=== PATIENT | female | born 2000 | race American Indian/Alaskan Native ===

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

== ENCOUNTER 2019-01-24 19:18 | Emergency (ER) | payer SELFPAY ==
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
[2019-01-24 20:29] LABS: ANION GAP 17.8; CHLORIDE,CL 111 mmol/L (101-111); SODIUM,NA 144 mmol/L (135-145)
[2019-01-24 20:30] LABS: ACETAMINOPHEN < 10 ug/mL
== END 2019-01-24 21:38 ==
LOC: DL.ED 19:18
DX: F32.9 Major depressive disorder, single episode, unspecified (principal); S50.812A Abrasion of left forearm, initial encounter; F10.129 Alcohol abuse with intoxication, unspecified; Y90.8 Blood alcohol level of 240 mg/100 ml or more; X78.9XXA Intentional self-harm by unspecified sharp object, initial encounter
CPT/HCPCS: 36415; 80053; 80305; 81001; 81025; 85025; 99283; G0480

== ENCOUNTER 2019-02-28 13:36 | Emergency (ER) | payer SELFPAY ==
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
== END 2019-02-28 19:20 | disposition home or self-care (01) ==
LOC: DL.ED 13:36
DX: S01.511A Laceration without foreign body of lip, initial encounter (principal); W22.8XXA Striking against or struck by other objects, initial encounter
CPT/HCPCS: 99283

== ENCOUNTER 2019-09-02 00:38 | Emergency (ER) | payer SELFPAY ==
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
== END 2019-09-02 02:56 | disposition home or self-care (01) ==
LOC: DL.ED 00:38
DX: S22.31XA Fracture of one rib, right side, initial encounter for closed fracture (principal); Y04.2XXA Assault by strike against or bumped into by another person, initial encounter
CPT/HCPCS: 71111; 80305-QW; 81001; 81025; 99284-25

== ENCOUNTER 2020-02-15 23:54 | Emergency (ER) | payer SELFPAY ==
[2020-02-16] MEDS ORDERED: Lidocaine 1% with EPINEPHrine 1:100,000 20 ML MDV INJECT ONE (00:01)
[2020-02-16 00:32] LABS: ANION GAP 15.6 mEq/L (7-13); CHLORIDE,CL 105 mmol/L (98-107); SODIUM,NA 143 mmol/L (136-145)
[2020-02-16] MEDS ORDERED: MVI, Adult with Vitamin K 10 ML, Folic Acid 1 MG, Thiamine 100 MG in Lactated Ringers 1... IV ONE ×4 (01:07)
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
== END 2020-02-16 02:22 | disposition home or self-care (01) ==
LOC: DL.ED 23:54
DX: S01.511A Laceration without foreign body of lip, initial encounter (principal); F10.129 Alcohol abuse with intoxication, unspecified; F17.210 Nicotine dependence, cigarettes, uncomplicated; Y90.8 Blood alcohol level of 240 mg/100 ml or more; Y04.0XXA Assault by unarmed brawl or fight, initial encounter
CPT/HCPCS: 12011; 36415; 73620; 80053; 80307; 85025; 96365; 99282; 99284; J3411; J7120; J3490

== ENCOUNTER 2020-05-21 03:54 | Emergency (ER) | payer SELFPAY ==
[2020-05-21 04:30] LABS: SODIUM,NA 146 mmol/L (136-145)
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
[2020-05-21 04:45] LABS: ANION GAP 17.3 mEq/L (7-13); CHLORIDE,CL 108 mmol/L (98-107)
== END 2020-05-21 04:41 ==
LOC: DL.ED 03:54
DX: F10.120 Alcohol abuse with intoxication, uncomplicated (principal); F17.210 Nicotine dependence, cigarettes, uncomplicated
CPT/HCPCS: 36415; 80053; 80305-QW; 80307; 81001; 81025; 85025; 99282; 99284

== ENCOUNTER 2023-06-07 04:27 | Emergency (ER) | payer MEDICAID ==
[~2023-06-07 04:27] MED LIST: Lactated Ringers 1,000 ML IV ONE; Sodium Chloride 0.9% 10 ML Syringe FLUSH PRN
[2023-06-07 04:28] LABS: HEMATOCRIT 44.9 % (37.0-47.0); MEAN CORPUSCULAR HEMOGLOBIN 30.4 pg (27.0-34.0); MEAN CORPUSCULAR HGB CONC 33.4 g/dL (33.0-35.0); MEAN CORPUSCULAR VOLUME 91.1 fL (80-100); PLATELET COUNT,PLT 342 10^3/uL (150-450); RED BLOOD CELL COUNT 4.93 10^6/uL (4.2-5.4)
[2023-06-07 04:33] LABS: BASOPHILS PERCENT AUTO 0.2 % (0.0-1.0); EOSINOPHILS PERCENT AUTO 0.6 % (1.0-3.0); LYMPHOCYTES PERCENT AUTO 29.5 % (20.5-50.1); MONOCYTES PERCENT AUTO 6.2 % (2-8); NEUTROPHILS PERCENT AUTO 63.5 % (42.2-75.2)
[2023-06-07 04:59] LABS: BAND PERCENT MAN 7 %; LYMPHOCYTES PERCENT MAN 33 % (20-50); SEG NEUTROPHILS PERCENT MAN 60 % (42-75)
[2023-06-07 05:01] LABS: A/G RATIO 0.9; ALBUMIN 3.8 g/dL (3.4-5.0); ANION GAP 14.6 mEq/L (7-13); BILIRUBIN TOTAL 0.2 mg/dL (0.2-1.0); BUN/CREATININE RATIO 2.5 (No establ ref range); CALCIUM 8.6 mg/dL (8.5-10.1); CREATININE 0.8 mg/dL (0.55-1.02); EST CRCL DRUG DOSING (CG) 97.57 mL/min; POTASSIUM,K 3.6 mmol/L (3.5-5.1); PROTEIN TOTAL,TP 8.2 g/dL (6.4-8.2)
[2023-06-07] MEDS ORDERED: MVI, Adult with Vitamin K 10 ML, Folic Acid 1 MG, Thiamine 100 MG in Lactated Ringers 1... IV ONE ×4 (05:45)
[2023-06-07 07:13] LABS: APPEARANCE,URINE CLEAR (CLEAR); BILIRUBIN,URINE NEGATIVE (NEGATIVE); COLOR,URINE YELLOW (YELLOW); GLUCOSE,URINE NEGATIVE (NEGATIVE); KETONES,URINE NEGATIVE (NEGATIVE); LEUKOCYTE ESTERASE,URINE NEGATIVE (NEGATIVE); NITRITE,URINE NEGATIVE (NEGATIVE); OCCULT BLOOD,URINE NEGATIVE (NEGATIVE); PH,URINE 6.5 (5.0-9.0); PROTEIN,URINE NEGATIVE (NEGATIVE); UROBILINOGEN,URINE 0.2 mg/dL (0.2-1.0)
[2023-06-07 07:16] LABS: AMPHETAMINES,URINE NEGATIVE (NEGATIVE); BARBITURATES,URINE NEGATIVE (NEGATIVE); BENZODIAZEPINE,URINE NEGATIVE (NEGATIVE); MDMA (ECSTASY), URINE NEGATIVE (NEGATIVE); METHADONE,URINE NEGATIVE (NEGATIVE); METHAMPHETAMINES,URINE NEGATIVE (NEGATIVE); OPIATES,URINE NEGATIVE (NEGATIVE); OXYCODONE,URINE NEGATIVE (NEGATIVE); PHENCYCLIDINE,URINE NEGATIVE (NEGATIVE); TCA,URINE NEGATIVE (NEGATIVE)
== END 2023-06-07 08:20 | disposition home or self-care (01) ==
LOC: DL.ED 04:27
DX: F10.920 Alcohol use, unspecified with intoxication, uncomplicated (principal)
CPT/HCPCS: 36415; 80053; 80305; 80307; 81003; 85025; 96361; 96365; 99282; 99284; J3411; J7120; J3490